=== PATIENT | male | born 1985 | race Caucasian/White ===

== ENCOUNTER 2024-05-03 02:56 | Inpatient (IN) | payer MEDICARE, OTHER ==
[~2024-05-03] VITALS: Ht 177.8 cm; Wt 97.2 kg
[2024-05-03] MEDS ORDERED: 0.9% SODIUM CHLORIDE 10 ML SYRINGE IVP PRN (03:00)
[2024-05-03 03:33] LABS: COVID AG,FIA SOURCE NASAL SWAB
[2024-05-03 03:38] LABS: BASOPHILS % (AUTO) 0.6 % (0.0-2.0); EOSINOPHILS % (AUTO) 1.9 % (1.0-6.0); HEMATOCRIT 37.1 % (41-53); HEMOGLOBIN 12.5 g/dL (13.5-17.5); LYMPHOCYTES # (AUTO) 0.7 K/uL (1.0-4.8); MEAN CORPUSCULAR HGB CONC 33.7 G/dL (31.0-37.0); MEAN CORPUSCULAR VOLUME 92 fL (80-100); MONOCYTES # (AUTO) 0.7 K/uL (0.1-1.0); MONOCYTES % (AUTO) 5.4 % (2.0-9.0); NEUTROPHILS # (AUTO) 11.4 K/uL (1.8-7.7); PLATELET COUNT (AUTO) 133 K/uL (150-450); RED BLOOD CELL COUNT(AUTO) 4.04 MIL/uL (4.50-5.90); RED CELL DISTRIBUTION WIDTH 13.7 % (11.5-14.5); WHITE BLOOD COUNT (AUTO) 13.1 K/uL (4.5-11.0)
[2024-05-03] MEDS: PIPERACILLIN/TAZO 3.375 GM/D5W 50 ML IV ONE (03:45)
[2024-05-03 03:46] LABS: NEUTROPHILS % (AUTO) 87.1 % (40.0-70.0)
[2024-05-03 03:51] LABS: ANION GAP 14 mmol/L (8-16); CALCIUM, TOTAL 9.5 mg/dL (8.8-10.5); CARBON DIOXIDE 28 mmol/L (22-29); CHLORIDE 98 mmol/L (98-107); CREATININE 5.91 mg/dL (0.60-1.30); GLOMERULAR FILTR. RATE CALC 11 mL/min (>60); GLUCOSE,RANDOM 88 mg/dL (70-110); SODIUM SERUM 140 mmol/L (136-145); UREA NITROGEN, BLOOD 24 mg/dL (7-18)
[2024-05-03 03:56] LABS: SARS-COV2 (COVID) ANTIGEN,FIA Negative (Negative)
[2024-05-03 03:57] LABS: ALANINE AMINOTRANSFERASE 12 U/L (12-78); ALBUMIN 3.8 g/dL (3.4-5.0); ALKALINE PHOSPHATASE 120 U/L (46-116); ASPARTATE AMINOTRANSFERASE 12 U/L (15-37); BILIRUBIN,TOTAL 0.7 mg/dL (0.1-1.0); CREATINE KINASE, TOTAL ONLY 39 U/L (39-308); TOTAL PROTEIN, SERUM 7.9 g/dL (6.4-8.2)
[2024-05-03 03:57] LABS: INFLUENZA TYPE A NEGATIVE FOR TYPE A (NEGATIVE); INFLUENZA TYPE B NEGATIVE FOR TYPE B (NEGATIVE)
[2024-05-03 03:58] LABS: LACTIC ACID 1.8 mmol/L (0.4-2.0); TROPONIN I-HIGH SENSITIVITY 12 ng/L (<76)
[2024-05-03 04:01] LABS: B-TYPE NATRIURETIC PEPTIDE 197 pg/mL (0-100)
[2024-05-03] MEDS: AZITHROMYCIN 500 MG/NS 250 ML IV ONE (04:13)
[2024-05-03] MEDS: DiphenhydrAMINE HCL 50 MG/ML VIAL IVP ONE (04:36)
[2024-05-03] MEDS: METOCLOPRAMIDE HCL 5 MG/ML 2 ML VIAL IVP ONE (04:36)
[2024-05-03] MEDS: VANCOMYCIN 1.25 GM/WATER(PEG) 250 ML IV ONE (05:32)
[2024-05-03] MEDS ORDERED: DEXTROSE 50%-WATER 25 GM/50 ML SYRINGE IVP PRN (11:30)
[2024-05-03] MEDS ORDERED: VANCOMYCIN 1GM/WATER(PEG/NADA) 200 ML IV PRN (11:45)
[2024-05-03] MEDS ORDERED: BISACODYL 10 MG RECTAL RECTAL SUPPOSITORY PR PRN (11:45)
[2024-05-03] MEDS ORDERED: SODIUM CHLORIDE 0.9% 1,000 ML ONE (12:29)
[2024-05-03] MEDS: PIPERACILLIN SODIUM/TAZOBACTAM 2.25 GM in DEXTROSE 5%-WATER 50 ML IV SCH (12:46)
[2024-05-03 13:43] VITALS: BP 123/68; PULSE 88; RESP 16; TEMP 98.4; O2SAT 97
[2024-05-03] MEDS: HEPARIN SODIUM,PORCINE 5,000 UNITS/ML VIAL SQ SCH (16:50)
[2024-05-03 18:00] VITALS: BP 115/71; PULSE 81; RESP 2; TEMP 98.1; O2SAT 98
[2024-05-03] MEDS: DOCUSATE SODIUM 100 MG CAPSULE PO SCH (20:55)
[2024-05-03 22:01] LABS: GLUCOMETER DEV NAME(LOC) 5S.1C; GLUCOSE,POINT OF CARE 77 MG/DL (70-110)
[2024-05-03 22:01] LABS: GLUCOMETER DEV NAME(LOC) 5S.1C; GLUCOSE,POINT OF CARE 103 MG/DL (70-110)
[2024-05-04] VITALS (15 sets, daily range): BP systolic 129–174; BP diastolic 61–91; PULSE 68–81; RESP 18; TEMP 97.6–98.3; O2SAT 97–100
[2024-05-04 06:49] LABS: CALCIUM, TOTAL 9.1 mg/dL (8.8-10.5); POTASSIUM 4.5 mmol/L (3.5-5.1); VANCOMYCIN,RANDOM 20.9 mcg/mL (25.0-50.0)
[2024-05-04] MEDS: FAMOTIDINE 20 MG TABLET PO SCH (08:27)
[2024-05-04 09:39] LABS: BASOPHILS % (AUTO) 0.6 % (0.0-2.0); EOSINOPHILS % (AUTO) 4.2 % (1.0-6.0); HEMATOCRIT 33.7 % (41-53); LYMPHOCYTES # (AUTO) 1.1 K/uL (1.0-4.8); LYMPHOCYTES % (AUTO) 8.4 % (22.0-44.0); MEAN CORPUSCULAR HEMOGLOBIN 30.4 pg (26.0-34.0); MEAN CORPUSCULAR HGB CONC 32.7 G/dL (31.0-37.0); MEAN CORPUSCULAR VOLUME 93 fL (80-100); MONOCYTES # (AUTO) 1.2 K/uL (0.1-1.0); MONOCYTES % (AUTO) 9.2 % (2.0-9.0); NEUTROPHILS # (AUTO) 9.9 K/uL (1.8-7.7); NEUTROPHILS % (AUTO) 77.6 % (40.0-70.0); PLATELET COUNT (AUTO) 124 K/uL (150-450); RED BLOOD CELL COUNT(AUTO) 3.62 MIL/uL (4.50-5.90); WHITE BLOOD COUNT (AUTO) 12.7 K/uL (4.5-11.0)
[2024-05-04] MEDS: FOLIC ACID/VIT B COMPLEX AND C TABLET PO SCH (13:00)
[2024-05-04 13:16] LABS: GLUCOMETER DEV NAME(LOC) 5S.1C; GLUCOSE,POINT OF CARE 166 MG/DL (70-110)
[2024-05-04 13:16] LABS: GLUCOMETER DEV NAME(LOC) 5S.1C; GLUCOSE,POINT OF CARE 82 MG/DL (70-110)
[2024-05-04] MEDS: ACETAMINOPHEN 325 MG TABLET PO PRN (17:18)
[2024-05-04] MEDS: VANCOMYCIN 750 MG/WATER(PEG) 150 ML IV ONE (22:21)
[2024-05-05 00:26] VITALS: BP 181/100; PULSE 84; RESP 18; TEMP 98.6; O2SAT 100
[2024-05-05] MEDS: NITROGLYCERIN 2% (1 GM=INCH) OINTMENT PACKET TP SCH (00:45)
[2024-05-05] MEDS: AmLODIPine BESYLATE 10 MG TABLET PO SCH (00:57)
[2024-05-05] MEDS: LABETALOL HCL 100 MG TABLET PO SCH (01:00)
[2024-05-05 04:12] VITALS: BP 143/73; PULSE 75; RESP 18; TEMP 97.9; O2SAT 98
[2024-05-05 08:29] VITALS: BP 162/83; PULSE 79; RESP 18; TEMP 97.7; O2SAT 98
[2024-05-05] MEDS ORDERED: CARV25 PO (09:39)
[2024-05-05] MEDS ORDERED: PREG25 PO (09:39)
[2024-05-05] MEDS ORDERED: AMLO-258 PO (09:39)
[2024-05-05] MEDS ORDERED: HYDR-4584 PO (09:39)
[2024-05-05] MEDS ORDERED: ATOR10TA PO (09:39)
[2024-05-05] MEDS ORDERED: TOPI25 PO (09:39)
[2024-05-05] MEDS ORDERED: FLUO-418 PO (09:39)
[2024-05-05] MEDS ORDERED: PANT-31 PO (09:39)
[2024-05-05 11:36] VITALS: BP 157/74; PULSE 78; RESP 18; TEMP 98.5; O2SAT 97
[2024-05-05] MEDS: ONDANSETRON HCL 4 MG/2 ML VIAL IVP PRN (13:43)
[2024-05-05 15:49] VITALS: BP 158/78; PULSE 80; RESP 18; TEMP 98.3; O2SAT 97
[2024-05-05 20:00] VITALS: BP 156/85; PULSE 78; RESP 19; TEMP 98.3; O2SAT 95
[2024-05-05] MEDS: AMPICILLIN SODIUM 2 GM/NS 100 ML IV SCH (21:34)
[2024-05-06] VITALS (14 sets, daily range): BP systolic 140–186; BP diastolic 75–96; PULSE 73–80; RESP 16–18; TEMP 97–98.9; O2SAT 95–98
[2024-05-06] MEDS: HydrALAZINE HCL 20 MG/ML VIAL IVP PRN (00:37)
[2024-05-06] MEDS: HydrOXYzine HCL 25 MG TABLET PO PRN (06:39)
[2024-05-06] MEDS ORDERED: SODIUM CHLORIDE 0.9% 1,000 ML ONE (07:22)
[2024-05-06 07:55] LABS: VANCOMYCIN,RANDOM 26.8 mcg/mL (25.0-50.0)
[2024-05-06 10:21] LABS: GLUCOMETER DEV NAME(LOC) 5S.1C; GLUCOSE,POINT OF CARE 71 MG/DL (70-110)
[2024-05-06 10:21] LABS: GLUCOMETER DEV NAME(LOC) 5S.2D; GLUCOSE,POINT OF CARE 117 MG/DL (70-110)
[2024-05-06 11:06] LABS: BASOPHILS % (AUTO) 1.9 % (0.0-2.0); EOSINOPHILS % (AUTO) 10.3 % (1.0-6.0); HEMATOCRIT 34.7 % (41-53); HEMOGLOBIN 11.6 g/dL (13.5-17.5); LYMPHOCYTES # (AUTO) 1.1 K/uL (1.0-4.8); LYMPHOCYTES % (AUTO) 17.8 % (22.0-44.0); MEAN CORPUSCULAR HEMOGLOBIN 30.8 pg (26.0-34.0); MEAN CORPUSCULAR HGB CONC 33.6 G/dL (31.0-37.0); MEAN CORPUSCULAR VOLUME 92 fL (80-100); MONOCYTES # (AUTO) 0.7 K/uL (0.1-1.0); NEUTROPHILS # (AUTO) 3.5 K/uL (1.8-7.7); PLATELET COUNT (AUTO) 153 K/uL (150-450); RED BLOOD CELL COUNT(AUTO) 3.77 MIL/uL (4.50-5.90); RED CELL DISTRIBUTION WIDTH 13.8 % (11.5-14.5)
[2024-05-06 11:51] LABS: CALCIUM, TOTAL 9.3 mg/dL (8.8-10.5); CREATININE 8.16 mg/dL (0.60-1.30); POTASSIUM 3.9 mmol/L (3.5-5.1)
[2024-05-06] MEDS: DiphenhydrAMINE HCL 50 MG/ML VIAL IM PRN (12:02)
[2024-05-06 12:55] LABS: GLUCOMETER DEV NAME(LOC) 5S.1C; GLUCOSE,POINT OF CARE 91 MG/DL (70-110)
[2024-05-06] MEDS: FLUoxetine HCL 20 MG CAPSULE PO SCH (13:02)
[2024-05-06] MEDS: PREGABALIN 25 MG CAPSULE PO SCH (14:44)
[2024-05-06] MEDS: INSULIN LISPRO 100 UNITS/ML SQ PRN (17:34)
[2024-05-06] MEDS: ETHYL ALCOHOL 62% ANTISEPTIC NASAL SANITIZER 0.6 ML AMPUL NASAL SCH (20:31)
[2024-05-06] MEDS ORDERED: PREGABALIN 25 MG CAPSULE PO SCH (21:00)
[2024-05-06 21:36] LABS: GLUCOMETER DEV NAME(LOC) 6S.2; GLUCOSE,POINT OF CARE 202 MG/DL (70-110)
[2024-05-06 21:36] LABS: GLUCOMETER DEV NAME(LOC) 6S.2; GLUCOSE,POINT OF CARE 182 MG/DL (70-110)
[2024-05-06] MEDS ORDERED: SODIUM CHLORIDE 0.9% 250 ML IV ONE (23:47)
[2024-05-07 06:15] VITALS: BP 162/79; PULSE 85; RESP 16; TEMP 97.6; O2SAT 96
[2024-05-07 08:05] LABS: GLUCOMETER DEV NAME(LOC) 6S.2; GLUCOSE,POINT OF CARE 363 MG/DL (70-110)
[2024-05-07 08:44] VITALS: BP 154/85; PULSE 80; RESP 18; TEMP 98.1; O2SAT 97
[2024-05-07] MEDS: INSULIN GLARGINE,HUM.REC.ANLOG 100 UNITS/ML SQ SCH (09:51)
[2024-05-07] MEDS ORDERED: DEXTROSE 50%-WATER 25 GM/50 ML SYRINGE IVP PRN (11:45)
[2024-05-07] MEDS ORDERED: LANT10005 CHEW (11:48)
[2024-05-07] MEDS: INSULIN LISPRO 100 UNITS/ML SQ PRN (12:00)
[2024-05-07] MEDS: LANTHANUM CARBONATE 500 MG CHEW TABLET PO SCH (12:05)
[2024-05-07 12:45] LABS: GLUCOMETER DEV NAME(LOC) 6S.2; GLUCOSE,POINT OF CARE 475 MG/DL (70-110)
[2024-05-07 12:45] LABS: GLUCOMETER DEV NAME(LOC) 6S.2; GLUCOSE,POINT OF CARE 343 MG/DL (70-110)
[2024-05-07 15:26] VITALS: BP 138/75; PULSE 73; RESP 18; TEMP 98.1; O2SAT 96
[2024-05-07] MEDS: VANCOMYCIN 750 MG/WATER(PEG) 150 ML IV ONE (16:27)
[2024-05-07 18:25] LABS: GLUCOMETER DEV NAME(LOC) 6S.2; GLUCOSE,POINT OF CARE 277 MG/DL (70-110)
[2024-05-07 19:40] VITALS: BP 130/69; PULSE 79; RESP 18; TEMP 98.2; O2SAT 98
[2024-05-07] MEDS: PREGABALIN 25 MG CAPSULE PO SCH (23:33)
[2024-05-08 00:27] LABS: GLUCOMETER DEV NAME(LOC) 6S.2; GLUCOSE,POINT OF CARE 223 MG/DL (70-110)
[2024-05-08 05:26] VITALS: BP 159/78; PULSE 84; RESP 20; TEMP 98.1; O2SAT 96
[2024-05-08 08:21] VITALS: BP 134/85; PULSE 83; RESP 20; TEMP 98.1; O2SAT 97
[2024-05-08] MEDS: INSULIN GLARGINE,HUM.REC.ANLOG 100 UNITS/ML SQ SCH (09:54)
[2024-05-08 10:46] LABS: BASOPHILS % (AUTO) 1.6 % (0.0-2.0); EOSINOPHILS % (AUTO) 8.2 % (1.0-6.0); HEMATOCRIT 35.6 % (41-53); HEMOGLOBIN 11.8 g/dL (13.5-17.5); LYMPHOCYTES # (AUTO) 1.4 K/uL (1.0-4.8); LYMPHOCYTES % (AUTO) 21.1 % (22.0-44.0); MEAN CORPUSCULAR HEMOGLOBIN 30.7 pg (26.0-34.0); MEAN CORPUSCULAR HGB CONC 33.1 G/dL (31.0-37.0); MEAN CORPUSCULAR VOLUME 93 fL (80-100); MONOCYTES # (AUTO) 0.7 K/uL (0.1-1.0); MONOCYTES % (AUTO) 11.3 % (2.0-9.0); NEUTROPHILS # (AUTO) 3.7 K/uL (1.8-7.7); NEUTROPHILS % (AUTO) 57.8 % (40.0-70.0); PLATELET COUNT (AUTO) 130 K/uL (150-450); RED BLOOD CELL COUNT(AUTO) 3.84 MIL/uL (4.50-5.90); RED CELL DISTRIBUTION WIDTH 13.8 % (11.5-14.5); WHITE BLOOD COUNT (AUTO) 6.4 K/uL (4.5-11.0)
[2024-05-08 11:24] LABS: CALCIUM, TOTAL 9.3 mg/dL (8.8-10.5); CREATININE 9.43 mg/dL (0.60-1.30); POTASSIUM 4.1 mmol/L (3.5-5.1)
[2024-05-08 16:04] VITALS: BP 152/71; PULSE 76; RESP 20; TEMP 98.5; O2SAT 98
[2024-05-08 17:31] LABS: GLUCOMETER DEV NAME(LOC) 6S.2; GLUCOSE,POINT OF CARE 372 MG/DL (70-110)
[2024-05-08 17:31] LABS: GLUCOMETER DEV NAME(LOC) 6S.2; GLUCOSE,POINT OF CARE 351 MG/DL (70-110)
[2024-05-08 20:10] VITALS: BP 163/85; PULSE 74; RESP 19; TEMP 98.5; O2SAT 97
[2024-05-08 23:10] VITALS: BP 151/73; PULSE 78; RESP 20; TEMP 98.2; O2SAT 98
[2024-05-09] VITALS (11 sets, daily range): BP systolic 125–176; BP diastolic 69–94; PULSE 78–81; RESP 16–18; TEMP 97.2–98.7; O2SAT 98–100
[2024-05-09 03:46] LABS: GLUCOMETER DEV NAME(LOC) 6S.2; GLUCOSE,POINT OF CARE 198 MG/DL (70-110)
[2024-05-09 03:46] LABS: GLUCOMETER DEV NAME(LOC) 6S.2; GLUCOSE,POINT OF CARE 144 MG/DL (70-110)
[2024-05-09 07:16] LABS: GLUCOMETER DEV NAME(LOC) 6S.2; GLUCOSE,POINT OF CARE 336 MG/DL (70-110)
[2024-05-09 07:16] LABS: GLUCOMETER DEV NAME(LOC) 6S.2; GLUCOSE,POINT OF CARE 384 MG/DL (70-110)
[2024-05-09] MEDS ORDERED: IOHEXOL 350 MG/ML 100 ML VIAL ONE (09:23)
[2024-05-09] MEDS ORDERED: SODIUM CHLORIDE 0.9% 100 ML ONE (09:23)
[2024-05-09 09:46] LABS: GLUCOMETER DEV NAME(LOC) 6S.2; GLUCOSE,POINT OF CARE 237 MG/DL (70-110)
[2024-05-09] MEDS ORDERED: SODIUM CHLORIDE 0.9% 2,000 ML ONE (10:18)
[2024-05-09] MEDS: INSULIN GLARGINE,HUM.REC.ANLOG 100 UNITS/ML SQ ONE (15:37)
[2024-05-09 18:31] LABS: GLUCOMETER DEV NAME(LOC) 6S.2; GLUCOSE,POINT OF CARE 188 MG/DL (70-110)
[2024-05-09 18:31] LABS: GLUCOMETER DEV NAME(LOC) 6S.2; GLUCOSE,POINT OF CARE 342 MG/DL (70-110)
[2024-05-10 03:57] VITALS: BP 138/77; PULSE 78; RESP 18; TEMP 98.2; O2SAT 97
[2024-05-10] MEDS ORDERED: SODIUM CHLORIDE 0.9% 250 ML IV ONE (04:41)
[2024-05-10 05:20] LABS: GLUCOMETER DEV NAME(LOC) 6S.2; GLUCOSE,POINT OF CARE 294 MG/DL (70-110)
[2024-05-10] MEDS: INSULIN GLARGINE,HUM.REC.ANLOG 100 UNITS/ML SQ SCH ×2 (08:22→20:57)
[2024-05-10 09:25] VITALS: BP 159/82; PULSE 82; RESP 18; TEMP 98.1; O2SAT 100
[2024-05-10] MEDS: VANCOMYCIN 750 MG/WATER(PEG) 150 ML IV ONE (10:37)
[2024-05-10 15:35] VITALS: BP 157/77; PULSE 74; RESP 18; TEMP 97.8; O2SAT 97
[2024-05-10 19:34] VITALS: BP 163/86; PULSE 76; RESP 18; TEMP 98; O2SAT 99
[2024-05-11] VITALS (13 sets, daily range): BP systolic 138–178; BP diastolic 72–100; PULSE 68–80; RESP 18–20; TEMP 97.6–98.9; O2SAT 97–100
[2024-05-11 00:21] LABS: GLUCOMETER DEV NAME(LOC) 6N.2B; GLUCOSE,POINT OF CARE 211 MG/DL (70-110)
[2024-05-11 07:08] LABS: BASOPHILS % (AUTO) 1.4 % (0.0-2.0); EOSINOPHILS % (AUTO) 10.7 % (1.0-6.0); HEMATOCRIT 36.7 % (41-53); HEMOGLOBIN 12.2 g/dL (13.5-17.5); LYMPHOCYTES # (AUTO) 1.6 K/uL (1.0-4.8); LYMPHOCYTES % (AUTO) 26.4 % (22.0-44.0); MEAN CORPUSCULAR HEMOGLOBIN 30.7 pg (26.0-34.0); MEAN CORPUSCULAR HGB CONC 33.2 G/dL (31.0-37.0); MEAN CORPUSCULAR VOLUME 92 fL (80-100); MONOCYTES # (AUTO) 0.6 K/uL (0.1-1.0); MONOCYTES % (AUTO) 10.2 % (2.0-9.0); NEUTROPHILS # (AUTO) 3.1 K/uL (1.8-7.7); NEUTROPHILS % (AUTO) 51.3 % (40.0-70.0); PLATELET COUNT (AUTO) 135 K/uL (150-450); RED BLOOD CELL COUNT(AUTO) 3.97 MIL/uL (4.50-5.90); RED CELL DISTRIBUTION WIDTH 13.9 % (11.5-14.5)
[2024-05-11 07:16] LABS: GLUCOMETER DEV NAME(LOC) 4E.2; GLUCOSE,POINT OF CARE 236 MG/DL (70-110)
[2024-05-11 07:16] LABS: GLUCOMETER DEV NAME(LOC) 4E.2; GLUCOSE,POINT OF CARE 147 MG/DL (70-110)
[2024-05-11 07:16] LABS: GLUCOMETER DEV NAME(LOC) 4E.2; GLUCOSE,POINT OF CARE 194 MG/DL (70-110)
[2024-05-11 07:16] LABS: GLUCOMETER DEV NAME(LOC) 4E.2; GLUCOSE,POINT OF CARE 256 MG/DL (70-110)
[2024-05-11 07:35] LABS: CALCIUM, TOTAL 8.9 mg/dL (8.8-10.5); CREATININE 9.78 mg/dL (0.60-1.30); POTASSIUM 4.2 mmol/L (3.5-5.1)
[2024-05-11] MEDS ORDERED: SODIUM CHLORIDE 0.9% 2,000 ML ONE (10:00)
[2024-05-11 11:21] LABS: GLUCOMETER DEV NAME(LOC) 4E.2; GLUCOSE,POINT OF CARE 271 MG/DL (70-110)
[2024-05-11 11:21] LABS: GLUCOMETER DEV NAME(LOC) 4E.2; GLUCOSE,POINT OF CARE 252 MG/DL (70-110)
[2024-05-11 15:25] LABS: GLUCOMETER DEV NAME(LOC) 4E.2; GLUCOSE,POINT OF CARE 115 MG/DL (70-110)
[2024-05-11 18:01] LABS: GLUCOMETER DEV NAME(LOC) 4E.2; GLUCOSE,POINT OF CARE 231 MG/DL (70-110)
[2024-05-11] MEDS: INSULIN GLARGINE,HUM.REC.ANLOG 100 UNITS/ML SQ SCH (20:12)
[2024-05-12 05:47] VITALS: BP 147/79; PULSE 73; RESP 20; TEMP 98.2; O2SAT 98
[2024-05-12 07:13] LABS: CREATININE 6.64 mg/dL (0.60-1.30); POTASSIUM 3.5 mmol/L (3.5-5.1)
[2024-05-12 07:18] LABS: BASOPHILS % (AUTO) 1.8 % (0.0-2.0); EOSINOPHILS % (AUTO) 10.3 % (1.0-6.0); HEMATOCRIT 40.4 % (41-53); HEMOGLOBIN 13.4 g/dL (13.5-17.5); LYMPHOCYTES # (AUTO) 1.5 K/uL (1.0-4.8); LYMPHOCYTES % (AUTO) 25.3 % (22.0-44.0); MEAN CORPUSCULAR HEMOGLOBIN 30.4 pg (26.0-34.0); MEAN CORPUSCULAR VOLUME 92 fL (80-100); MONOCYTES # (AUTO) 0.6 K/uL (0.1-1.0); MONOCYTES % (AUTO) 10.2 % (2.0-9.0); NEUTROPHILS # (AUTO) 3.2 K/uL (1.8-7.7); NEUTROPHILS % (AUTO) 52.4 % (40.0-70.0); PLATELET COUNT (AUTO) 156 K/uL (150-450); RED BLOOD CELL COUNT(AUTO) 4.39 MIL/uL (4.50-5.90); RED CELL DISTRIBUTION WIDTH 14.4 % (11.5-14.5); WHITE BLOOD COUNT (AUTO) 6.1 K/uL (4.5-11.0)
[2024-05-12 07:19] LABS: MAGNESIUM 2.1 mg/dL (1.80-2.40); PHOSPHORUS 2.2 mg/dL (2.5-4.9)
[2024-05-12 08:16] VITALS: BP 170/90; PULSE 77; RESP 17; TEMP 98.2; O2SAT 100
[2024-05-12] MEDS: SODIUM PHOS,M-BASIC-D-BASIC 20 MMOL in DEXTROSE 5%-WATER 150 ML IV ONE (08:49)
[2024-05-12] MEDS: INSULIN GLARGINE,HUM.REC.ANLOG 100 UNITS/ML SQ SCH (08:51)
[2024-05-12 12:36] LABS: GLUCOMETER DEV NAME(LOC) 4E.2; GLUCOSE,POINT OF CARE 147 MG/DL (70-110)
[2024-05-12 16:34] VITALS: BP 169/80; PULSE 76; RESP 16; TEMP 97.8; O2SAT 100
[2024-05-12 17:10] LABS: GLUCOMETER DEV NAME(LOC) 4E.2; GLUCOSE,POINT OF CARE 91 MG/DL (70-110)
[2024-05-12] MEDS: CloNIDine HCL 0.1 MG TABLET PO PRN (17:50)
[2024-05-12 19:24] VITALS: BP 154/81; PULSE 78; RESP 18; TEMP 98.3; O2SAT 99
[2024-05-12 21:55] LABS: GLUCOMETER DEV NAME(LOC) 4E.2; GLUCOSE,POINT OF CARE 238 MG/DL (70-110)
[2024-05-13] VITALS (11 sets, daily range): BP systolic 137–173; BP diastolic 75–88; PULSE 60–69; RESP 18–20; TEMP 97–98.4; O2SAT 100
[2024-05-13 05:41] LABS: GLUCOMETER DEV NAME(LOC) 6N.2B; GLUCOSE,POINT OF CARE 157 MG/DL (70-110)
[2024-05-13] MEDS ORDERED: SODIUM CHLORIDE 0.9% 2,000 ML ONE (09:05)
[2024-05-13] MEDS ORDERED: VANCOMYCIN 750 MG/WATER(PEG) 150 ML IV ONE (11:00)
[2024-05-13 17:31] LABS: GLUCOMETER DEV NAME(LOC) 5S.2D; GLUCOSE,POINT OF CARE 122 MG/DL (70-110)
== END 2024-05-13 15:30 | disposition home or self-care (01) | DRG 871 ==
LOC: EMS 02:56 → EDH 08:41 → 5S 09:40 → 6S 05-06 14:10 → 4E 05-10 04:39
PROVIDERS: ADMIT Internal Medicine; ATTEND Internal Medicine
PROC: 5A1D70Z Performance of Urinary Filtration, Intermittent, Less than 6 Hours Per Day (ICD-10-PCS; principal; 2024-05-04)
PROC: 5A1D70Z Performance of Urinary Filtration, Intermittent, Less than 6 Hours Per Day (ICD-10-PCS; 2024-05-06)
PROC: 5A1D70Z Performance of Urinary Filtration, Intermittent, Less than 6 Hours Per Day (ICD-10-PCS; 2024-05-09)
PROC: 5A1D70Z Performance of Urinary Filtration, Intermittent, Less than 6 Hours Per Day (ICD-10-PCS; 2024-05-11)
PROC: 5A1D70Z Performance of Urinary Filtration, Intermittent, Less than 6 Hours Per Day (ICD-10-PCS; 2024-05-13)
DX: A41.9 Sepsis, unspecified organism (principal); G92.8 Other toxic encephalopathy; N18.6 End stage renal disease; J15.69 Pneumonia due to other Gram-negative bacteria; I12.0 Hypertensive chronic kidney disease with stage 5 chronic kidney disease or end stage renal disease; Z20.822 Contact with and (suspected) exposure to COVID-19; D63.1 Anemia in chronic kidney disease; Z68.30 Body mass index [BMI] 30.0-30.9, adult; E11.22 Type 2 diabetes mellitus with diabetic chronic kidney disease; E66.9 Obesity, unspecified; F41.1 Generalized anxiety disorder; E11.65 Type 2 diabetes mellitus with hyperglycemia; E11.40 Type 2 diabetes mellitus with diabetic neuropathy, unspecified; Z99.2 Dependence on renal dialysis; Z88.8 Allergy status to other drugs, medicaments and biological substances; Z97.0 Presence of artificial eye
CPT/HCPCS: 71045; 71260; 72193; 74160; 80048; 80053; 80202; 82550; 82962; 83605; 83735; 83880; 84100; 84145; 84484; 85025; 86308; 86663; 86665; 87040; 87077; 87081; 87205; 87340; 87804; 90935; 93005; 97162; 97166; 97535; 99291; G0378; J0290; J0360; J0456; J1200; J1644; J1815; J2405; J2543; J2765; J3490; J7030; J7050; J7060; 36415-L1; 36415-TC; X7700

== ENCOUNTER 2025-03-11 19:58 | Emergency (ER) | payer MEDICARE, OTHER ==
[~2025-03-11] VITALS: Ht 182.9 cm; Wt 95.9 kg
[~2025-03-11 19:58] MED LIST: AMLO-258 PO; ATOR10TA PO; FLUO-418 PO; PANT-31 PO; PREG25 PO; TOPI-257 PO
[2025-03-11 20:14] VITALS: BP 146/84; PULSE 90; RESP 18; TEMP 97.7; O2SAT 94
[2025-03-11 21:38] LABS: PLATELET COUNT (AUTO) 159 K/uL (150-450); RED BLOOD CELL COUNT(AUTO) 5.73 MIL/uL (4.50-5.90); RED CELL DISTRIBUTION WIDTH 15.4 % (11.5-14.5); WHITE BLOOD COUNT (AUTO) 7.7 K/uL (4.5-11.0)
[2025-03-11 21:44] LABS: CALCIUM, TOTAL 9.1 mg/dL (8.8-10.5); CREATININE 8.58 mg/dL (0.60-1.30); GLOMERULAR FILTR. RATE CALC 7.0 mL/min (>60); GLUCOSE,RANDOM 95.0 mg/dL (70-110); SODIUM SERUM 139.0 mmol/L (136-145); UREA NITROGEN, BLOOD 42.0 mg/dL (7-18)
[2025-03-11 22:30] LABS: GLUCOMETER DEV NAME(LOC) ER.7; GLUCOSE,POINT OF CARE 48 MG/DL (70-110)
[2025-03-11 22:30] LABS: GLUCOMETER DEV NAME(LOC) ER.7; GLUCOSE,POINT OF CARE 73 MG/DL (70-110)
[2025-03-11] MEDS ORDERED: CEPH-556 PO (23:28)
[2025-03-11] MEDS: CEPHALEXIN MONOHYDRATE 500 MG CAPSULE PO ONE (23:33)
== END 2025-03-11 23:41 | disposition home or self-care (01) ==
LOC: EMS 19:58
DX: N39.0 Urinary tract infection, site not specified (principal); E11.22 Type 2 diabetes mellitus with diabetic chronic kidney disease; I12.0 Hypertensive chronic kidney disease with stage 5 chronic kidney disease or end stage renal disease; N18.6 End stage renal disease; Z99.2 Dependence on renal dialysis; Z88.8 Allergy status to other drugs, medicaments and biological substances; Z88.5 Allergy status to narcotic agent; Z79.899 Other long term (current) drug therapy
CPT/HCPCS: 80048; 82962; 85025; 99283